=== PATIENT | female | born 1995 | race Caucasian/White ===

== ENCOUNTER 2017-02-18 19:11 | Emergency (ER) | payer BC, MEDICAID ==
[~2017-02-18] VITALS: Ht 165.1 cm; Wt 50.0 kg
[2017-02-18 19:16] VITALS: BP 101/67
[2017-02-18] MEDS ORDERED: SODIUM CHLORIDE 0.9% 1,000ML IVBOLUS ONE (19:30)
[2017-02-18] MEDS ORDERED: FAMOTIDINE 20 MG/2 ML IVP ONE (19:30)
[2017-02-18] MEDS ORDERED: ONDANSETRON 2MG/ML, 2ML IVPush ONE (19:30)
[2017-02-18] MEDS ORDERED: SODIUM CHLORIDE FLUSH 10ML SYR IVF ONE (19:30)
[2017-02-18 21:16] LABS: HEMATOCRIT 43.6 % (34.6-47.8); HEMOGLOBIN 14.7 g/dL (11.7-16.4); WHITE BLOOD COUNT 8.8 x10^3/uL (3.4-10)
[2017-02-18 21:28] LABS: BLOOD UREA NITROGEN 12 mg/dL (7-18)
[2017-02-18 21:35] LABS: DIFF TOTAL CELLS COUNTED 100 CELL DIFF
[2017-02-18 21:44] LABS: LARGE PLATELETS 1+; VERIFY COUNTS? YES
[2017-02-18] MEDS ORDERED: FAMOTIDINE 20 MG/2 ML ONE (22:02)
[2017-02-18] MEDS ORDERED: ONDANSETRON 2MG/ML, 2ML ONE (22:02)
[2017-02-18] MEDS ORDERED: ONDANSETRON ODT 4 MG ONE (22:17)
[2017-02-18] MEDS ORDERED: ONDANSETRON ODT 4 MG PO ONE (22:30)
== END 2017-02-18 23:22 | disposition home or self-care (01) ==
LOC: ED 23:11
DX: R11.2 Nausea with vomiting, unspecified (principal); R19.7 Diarrhea, unspecified; R30.0 Dysuria; F15.20 Other stimulant dependence, uncomplicated; F17.200 Nicotine dependence, unspecified, uncomplicated; Z88.1 Allergy status to other antibiotic agents; Z88.8 Allergy status to other drugs, medicaments and biological substances
CPT/HCPCS: 36415; 80048; 81001; 82040; 84703; 85025; 87086; 99284; Q0162

== ENCOUNTER 2018-05-17 22:09 | Emergency (ER) | payer BC, MEDICAID ==
[~2018-05-17] VITALS: Ht 165.1 cm; Wt 59.0 kg
[2018-05-17] MEDS ORDERED: ACETAMINOPHEN 500 MG TABLET PO ONE (22:30)
[2018-05-17] MEDS ORDERED: DIPHENHYDRAMINE 25 MG CAPSULE PO ONE (22:30)
[2018-05-17] MEDS ORDERED: IBUPROFEN 200 MG TABLET PO ONE (22:30)
[2018-05-17] MEDS ORDERED: IBUPROFEN 200 MG TABLET ONE (22:33)
[2018-05-17] MEDS ORDERED: DIPHENHYDRAMINE 25 MG CAPSULE ONE (22:34)
[2018-05-17] MEDS ORDERED: ACETAMINOPHEN 500 MG TABLET ONE (22:34)
[2018-05-17 22:45] LABS: BASOPHILS # (AUTO) 0.03 x10^3/uL (0-0.1); BASOPHILS % (AUTO) 0 % (0-1); EOSINOPHILS # (AUTO) 0.34 x10^3/uL (0-0.4); EOSINOPHILS % (AUTO) 4 % (1-7); LYMPHOCYTES # (AUTO) 3.93 x10^3/uL (1-3.4); LYMPHOCYTES % (AUTO) 46 % (22-44); MD NO; MEAN CORPUSCULAR HEMOGLOBIN 31.3 pg (27.0-34.8); MEAN CORPUSCULAR HGB CONC 34.3 g/dL (32.4-35.8); MEAN CORPUSCULAR VOLUME 91.1 fL (80-100); MONOCYTES # (AUTO) 0.77 x10^3/uL (0.2-0.8); MONOCYTES % (AUTO) 9 % (2-9); NEUTROPHILS # (AUTO) 3.41 x10^3/uL (1.8-6.8); NEUTROPHILS % (AUTO) 40 % (42-75); PLATELET COUNT 299 x10^3/uL (130-400); RED BLOOD COUNT 4.09 x10^6/uL (3.82-5.3); RED CELL DISTRIBUTION WIDTH 13.2 % (9.6-15.2)
[2018-05-17 22:57] LABS: ALBUMIN 3.7 g/dL (3.4-5.0); ANION GAP 6 mmol/L (5-15); CALCIUM 8.7 mg/dL (8.5-10.1); CHLORIDE 105 mmol/L (98-107); CREATININE 0.68 mg/dL (0.55-1.02)
[2018-05-17 23:06] VITALS: BP 104/50
== END 2018-05-18 00:04 | disposition home or self-care (01) ==
LOC: ED 23:13
DX: T78.40XA Allergy, unspecified, initial encounter (principal); G44.209 Tension-type headache, unspecified, not intractable; F17.200 Nicotine dependence, unspecified, uncomplicated; Y99.8 Other external cause status
CPT/HCPCS: 36415; 71045; 80048; 82040; 84703; 85025; 93005; 99284; Q0163

== ENCOUNTER 2018-11-16 23:19 | Emergency (ER) | payer BC, OTHER ==
[~2018-11-16] VITALS: Ht 162.6 cm; Wt 60.2 kg
[2018-11-17] MEDS ORDERED: MAALOX/HYOSCYAMINE/LIDOCAINE 45 ML BTL ONE
[2018-11-17] MEDS ORDERED: MAALOX/HYOSCYAMINE/LIDOCAINE 45 ML BTL PO ONE
--- NOTE | 2018-11-17 00:05 | NUR ---
PT IN HOSPITAL GOWN. PT ON CARDIAC AND VITALS MONITORS. PT MEDICATED WITH ORDERED MEDS. WILL CONTINUE TO MONITOR. CALL LIGHT WITHIN REACH.
[2018-11-17 00:24] LABS: BASOPHILS # (AUTO) 0.03 x10^3/uL (0-0.1); BASOPHILS % (AUTO) 0 % (0-1); EOSINOPHILS # (AUTO) 0.18 x10^3/uL (0-0.4); EOSINOPHILS % (AUTO) 2 % (1-7); LYMPHOCYTES # (AUTO) 3.54 x10^3/uL (1-3.4); LYMPHOCYTES % (AUTO) 44 % (22-44); MD NO; MEAN CORPUSCULAR HEMOGLOBIN 30.4 pg (27.0-34.8); MEAN CORPUSCULAR HGB CONC 32.2 g/dL (32.4-35.8); MEAN CORPUSCULAR VOLUME 94.5 fL (80-100); MEAN PLATELET VOLUME 9.6 fL (7.4-10.4); MONOCYTES # (AUTO) 0.57 x10^3/uL (0.2-0.8); MONOCYTES % (AUTO) 7 % (2-9); NEUTROPHILS # (AUTO) 3.65 x10^3/uL (1.8-6.8); NEUTROPHILS % (AUTO) 46 % (42-75); PLATELET COUNT 228 x10^3/uL (130-400); RED BLOOD COUNT 4.17 x10^6/uL (3.82-5.3); RED CELL DISTRIBUTION WIDTH 12.6 % (9.6-15.2)
[2018-11-17 00:37] LABS: ALBUMIN 3.8 g/dL (3.4-5.0); ANION GAP 6 mmol/L (5-15); CALCIUM 8.6 mg/dL (8.5-10.1); CHLORIDE 106 mmol/L (98-107)
[2018-11-17 00:42] LABS: ALANINE AMINOTRANSFERASE 19 U/L (12-78); ALKALINE PHOSPHATASE 36 U/L (45-117); BILIRUBIN,TOTAL 0.4 mg/dL (0.2-1.0); CREATININE 0.79 mg/dL (0.55-1.02); TOTAL PROTEIN 7.1 g/dL (6.4-8.2)
--- NOTE | 2018-11-17 00:50 | NUR ---
PT UP FOR RECHECK. ALL RESULTS BACK.
[2018-11-17 01:15] VITALS: BP 94/51
== END 2018-11-17 01:17 | disposition home or self-care (01) ==
LOC: ED 23:59
DX: K21.0 Gastro-esophageal reflux disease with esophagitis (principal); K29.00 Acute gastritis without bleeding; R07.89 Other chest pain; F17.200 Nicotine dependence, unspecified, uncomplicated
CPT/HCPCS: 36415; 80053; 83690; 84703; 85025; 93005; 99284

== ENCOUNTER 2019-05-21 21:53 | Outpatient (CLI) | payer OTHER, BC, MEDICAID ==
[~2019-05-21] VITALS: Ht 157.5 cm; Wt 72.7 kg
[2019-05-21] MEDS ORDERED: PREN-59 PO (22:12)
== END 2019-05-21 22:25 | disposition home or self-care (01) ==
LOC: LDOP 21:53
PROVIDERS: ATTEND Obstetrics & Gynecology
DX: O36.8120 Decreased fetal movements, second trimester, not applicable or unspecified (principal); Z3A.25 25 weeks gestation of pregnancy
CPT/HCPCS: 59025; 99201; 99211; G0463

== ENCOUNTER 2019-07-28 18:19 | Outpatient (CLI) | payer OTHER, BC, MEDICAID ==
[~2019-07-28] VITALS: Ht 162.6 cm; Wt 71.8 kg
[~2019-07-28 18:19] MED LIST: PREN-59 PO
[2019-07-28 18:31] VITALS: BP 107/58
[2019-07-28 18:54] LABS: MICROSCOPIC INDICATED
== END 2019-07-28 19:52 | disposition home or self-care (01) ==
LOC: LDOP 18:19
PROVIDERS: ATTEND Obstetrics & Gynecology
DX: Z34.83 Encounter for supervision of other normal pregnancy, third trimester (principal); Z3A.35 35 weeks gestation of pregnancy
CPT/HCPCS: 59025; 81001; 87086; 99211; G0463

== ENCOUNTER 2019-08-10 05:40 | Inpatient (IN) | payer OTHER, BC, MEDICAID ==
[~2019-08-10] VITALS: Ht 162.6 cm; Wt 75.0 kg
[2019-08-10] MEDS ORDERED: OXYTOCIN 30U/ 0.9% NaCL 500ML 500 ML IV PRN (05:41)
[2019-08-10] MEDS ORDERED: D5%-LACTATED RINGERS 1,000 ML IV SCH (05:41)
[2019-08-10] MEDS ORDERED: OXYTOCIN 30U/ 0.9% NaCL 500ML 500 ML IV ONE (05:41)
[2019-08-10] MEDS ORDERED: NEWBORN KIT ONE (05:44)
[2019-08-10] MEDS ORDERED: MISOPROSTOL 200 MCG TABLET ONE (05:45)
[2019-08-10] MEDS ORDERED: LIDOCAINE 1%, 20ML ONE (05:45)
[2019-08-10] MEDS ORDERED: OXYTOCIN 30U/ 0.9% NaCL 500ML 500 ML ONE ×2 (05:45→18:19)
[2019-08-10] MEDS ORDERED: TERBUTALINE 1 MG/ML, 1ML IVPush PRN (06:00)
[2019-08-10] MEDS ORDERED: FENTANYL PF 100 MCG/2ML IV PRN (06:00)
[2019-08-10] MEDS ORDERED: TERBUTALINE 1 MG/ML, 1ML SQ PRN (06:00)
[2019-08-10] MEDS ORDERED: MISOPROSTOL 25 MCG TABLET VG PRN (06:00)
[2019-08-10] MEDS ORDERED: ALUMINUM/MAG/SIMETHICONE 30 ML UDC PO PRN (06:00)
[2019-08-10] MEDS ORDERED: FENTANYL PF 100 MCG/2ML IVPush PRN (06:00)
[2019-08-10] MEDS ORDERED: ONDANSETRON 2MG/ML, 2ML IVPush PRN (06:00)
[2019-08-10 06:18] LABS: BASOPHILS # (AUTO) 0.08 x10^3/uL (0-0.1); BASOPHILS % (AUTO) 1 % (0-1); EOSINOPHILS % (AUTO) 2 % (1-7); LYMPHOCYTES # (AUTO) 2.72 x10^3/uL (1-3.4); LYMPHOCYTES % (AUTO) 30 % (22-44); MD NO; MEAN CORPUSCULAR HEMOGLOBIN 31.8 pg (27.0-34.8); MEAN CORPUSCULAR HGB CONC 33.6 g/dL (32.4-35.8); MEAN CORPUSCULAR VOLUME 94.6 fL (80-100); MEAN PLATELET VOLUME 10.1 fL (7.4-10.4); MONOCYTES # (AUTO) 0.92 x10^3/uL (0.2-0.8); MONOCYTES % (AUTO) 10 % (2-9); NEUTROPHILS # (AUTO) 5.08 x10^3/uL (1.8-6.8); NEUTROPHILS % (AUTO) 56 % (42-75); PLATELET COUNT 186 x10^3/uL (130-400); RED BLOOD COUNT 4.04 x10^6/uL (3.82-5.3); RED CELL DISTRIBUTION WIDTH 12.8 % (9.6-15.2)
[2019-08-10] MEDS: LACTATED RINGERS 1,000 ML IV SCH ×5 (06:30→21:51)
[2019-08-10] MEDS ORDERED: FENTANYL PF 500 MCG, BUPIVACAINE/PF 0.5%, 30ML 62.5 ML in SODIUM CHLORIDE 0.9% 177.5 ML EPIDCONT SCH (13:51)
[2019-08-10] MEDS ORDERED: FENTANYL PF 100 MCG/2ML ONE (13:51)
[2019-08-10] MEDS ORDERED: EPHEDRINE 50 MG/ML, 1ML IVPush PRN (14:00)
[2019-08-10] MEDS ORDERED: LACTATED RINGERS 1,000 ML IVBOLUS PRN (14:00)
[2019-08-10] MEDS ORDERED: BUPIVACAINE 0.25% ONE (14:44)
[2019-08-10] MEDS ORDERED: LIDOCAINE/PF 1.5%-EPI 1:200K, 30ML ONE (14:46)
[2019-08-10] MEDS ORDERED: BISACODYL 10 MG SUPP PR PRN (17:30)
[2019-08-10] MEDS ORDERED: METOCLOPRAMIDE 5 MG/ML, 2ML IV PRN (17:30)
[2019-08-10] MEDS ORDERED: HYDROcodone/APAP 5/325 TABLET PO PRN (17:30)
[2019-08-10] MEDS ORDERED: CARBOPROST TROMETHAMINE 250 MCG/ML, 1ML IM PRN (17:30)
[2019-08-10] MEDS ORDERED: METHYLERGONOVINE 0.2 MG/ML IM PRN (17:30)
[2019-08-10] MEDS ORDERED: OXYTOCIN 10 UNITS/ML, 1ML IM PRN (17:30)
[2019-08-10] MEDS ORDERED: ONDANSETRON 2MG/ML, 2ML IV PRN (17:30)
[2019-08-10] MEDS ORDERED: MISOPROSTOL 200 MCG TABLET PR PRN (17:30)
[2019-08-10] MEDS ORDERED: SIMETHICONE 80 MG CHEW TAB PO PRN (17:30)
[2019-08-10] MEDS: OXYTOCIN 30U/ 0.9% NaCL 500ML 500 ML IV SCH (18:21)
[2019-08-10 20:50] VITALS: BP 104/51
[2019-08-11] MEDS: IBUPROFEN 600 MG TABLET PO PRN ×3 (00:27→15:32)
[2019-08-11] MEDS: DOCUSATE 100 MG CAPSULE PO PRN ×2 (00:27→20:31)
[2019-08-11 00:30] VITALS: BP 114/75
[2019-08-11 00:58] LABS: BASOPHILS # (AUTO) 0.11 x10^3/uL (0-0.1); BASOPHILS % (AUTO) 1 % (0-1); EOSINOPHILS # (AUTO) 0.15 x10^3/uL (0-0.4); EOSINOPHILS % (AUTO) 1 % (1-7); LYMPHOCYTES # (AUTO) 2.51 x10^3/uL (1-3.4); LYMPHOCYTES % (AUTO) 18 % (22-44); MD NO; MEAN CORPUSCULAR HEMOGLOBIN 31.4 pg (27.0-34.8); MEAN CORPUSCULAR HGB CONC 33.2 g/dL (32.4-35.8); MEAN CORPUSCULAR VOLUME 94.8 fL (80-100); MEAN PLATELET VOLUME 10.1 fL (7.4-10.4); MONOCYTES # (AUTO) 0.97 x10^3/uL (0.2-0.8); MONOCYTES % (AUTO) 7 % (2-9); NEUTROPHILS # (AUTO) 9.96 x10^3/uL (1.8-6.8); NEUTROPHILS % (AUTO) 73 % (42-75); PLATELET COUNT 173 x10^3/uL (130-400); RED BLOOD COUNT 4.18 x10^6/uL (3.82-5.3); RED CELL DISTRIBUTION WIDTH 13.4 % (9.6-15.2)
[2019-08-11] MEDS: OXYTOCIN 30U/ 0.9% NaCL 500ML 500 ML IV SCH ×3 (03:06→23:06)
[2019-08-11] MEDS: ACETAMINOPHEN 325 MG TABLET PO PRN ×2 (03:26→20:31)
[2019-08-11 04:00] VITALS: BP 116/77
[2019-08-11] MEDS ORDERED: PRENATAL VIT/IRON/FA 1 EACH TABLET ONE (06:31)
[2019-08-11] MEDS: PRENATAL VIT/IRON/FA 1 EACH TABLET PO SCH (06:37)
[2019-08-11 07:15] VITALS: BP 105/58
[2019-08-11] MEDS: HYDROcodone/APAP 5/325 TABLET PO PRN (16:40)
[2019-08-11 20:00] VITALS: BP 102/64
[2019-08-12] MEDS: IBUPROFEN 600 MG TABLET PO PRN ×3 (00:39→15:41)
[2019-08-12] MEDS: HYDROcodone/APAP 5/325 TABLET PO PRN ×2 (00:39→15:41)
[2019-08-12] MEDS: PRENATAL VIT/IRON/FA 1 EACH TABLET PO SCH (08:39)
[2019-08-12] MEDS: DOCUSATE 100 MG CAPSULE PO PRN (08:39)
[2019-08-12 08:45] VITALS: BP 105/66
[2019-08-12] MEDS ORDERED: IBUP-1222 PO (16:42)
[2019-08-12] MEDS ORDERED: HYDR-3240 PO (16:43)
[2019-08-12] MEDS ORDERED: SENN-92 PO (16:44)
[2019-08-12 17:15] VITALS: BP 108/56
== END 2019-08-12 18:15 | disposition home or self-care (01) | DRG 807 ==
LOC: LDIP 05:40 → 2NW 20:34
PROVIDERS: ADMIT Obstetrics & Gynecology; ATTEND Obstetrics & Gynecology
PROC: 10E0XZZ Delivery of Products of Conception, External Approach (ICD-10-PCS; principal; 2019-08-10)
PROC: 10907ZC Drainage of Amniotic Fluid, Therapeutic from Products of Conception, Via Natural or Artificial Opening (ICD-10-PCS; 2019-08-10)
PROC: 3E033VJ Introduction of Other Hormone into Peripheral Vein, Percutaneous Approach (ICD-10-PCS; 2019-08-10)
PROC: 3E0R3BZ Introduction of Anesthetic Agent into Spinal Canal, Percutaneous Approach (ICD-10-PCS; 2019-08-10)
PROC: 00HU33Z Insertion of Infusion Device into Spinal Canal, Percutaneous Approach (ICD-10-PCS; 2019-08-10)
PROC: 0HQ9XZZ Repair Perineum Skin, External Approach (ICD-10-PCS; 2019-08-10)
PROC: 0UQMXZZ Repair Vulva, External Approach (ICD-10-PCS; 2019-08-10)
DX: O36.5930 Maternal care for other known or suspected poor fetal growth, third trimester, not applicable or unspecified (principal); Z37.0 Single live birth; O76 Abnormality in fetal heart rate and rhythm complicating labor and delivery; Z3A.37 37 weeks gestation of pregnancy; F41.9 Anxiety disorder, unspecified; O99.344 Other mental disorders complicating childbirth; O75.89 Other specified complications of labor and delivery; O70.0 First degree perineal laceration during delivery; O71.82 Other specified trauma to perineum and vulva
CPT/HCPCS: 36415; J3490; S0020; 85025; 86592; 86850; 86900; G0378; J3010; J2590; J7050; J7120

== ENCOUNTER 2020-10-08 12:06 | Outpatient (CLI) | payer OTHER, MEDICAID ==
[~2020-10-08 12:06] MED LIST changes: +HYDR-2214 PO; +IBUP-1222 PO; +SENN-92 PO
== END 2020-10-08 12:51 | disposition home or self-care (01) ==
LOC: LDOP 12:06
PROVIDERS: ATTEND Obstetrics & Gynecology
DX: O36.8190 Decreased fetal movements, unspecified trimester, not applicable or unspecified (principal)
CPT/HCPCS: 99211; G0463

== ENCOUNTER 2020-12-08 17:23 | Outpatient (CLI) | payer OTHER, MEDICAID ==
[~2020-12-08] VITALS: Ht 162.6 cm; Wt 82.3 kg
[2020-12-08 17:46] VITALS: BP 119/51
[2020-12-08 17:51] LABS: MICROSCOPIC INDICATED
== END 2020-12-08 18:21 | disposition home or self-care (01) ==
LOC: LDOP 17:23
PROVIDERS: ATTEND Obstetrics & Gynecology
DX: O26.893 Other specified pregnancy related conditions, third trimester (principal); R10.9 Unspecified abdominal pain; Z3A.34 34 weeks gestation of pregnancy
CPT/HCPCS: 59025; 81001; 87077; 87086; 87186

== ENCOUNTER 2020-12-17 11:26 | Outpatient (CLI) | payer OTHER, BC, MEDICAID ==
[~2020-12-17] VITALS: Ht 162.6 cm; Wt 82.7 kg
[2020-12-17 12:07] LABS: MICROSCOPIC NOT IND
[2020-12-17 13:59] LABS: BASOPHILS % (AUTO) 1 % (0-1); EOSINOPHILS % (AUTO) 1 % (1-7); LYMPHOCYTES % (AUTO) 23 % (22-44); MEAN CORPUSCULAR HEMOGLOBIN 30.9 pg (27.0-34.8); MEAN CORPUSCULAR HGB CONC 33.5 g/dL (32.4-35.8); MEAN PLATELET VOLUME 9.8 fL (7.4-10.4); MONOCYTES % (AUTO) 10 % (2-9); NEUTROPHILS % (AUTO) 65 % (42-75); PLATELET COUNT 208 x10^3/uL (130-400); RED BLOOD COUNT 3.83 x10^6/uL (3.82-5.3); RED CELL DISTRIBUTION WIDTH 12.7 % (9.6-15.2)
[2020-12-17] MEDS ORDERED: OXYTOCIN 30U/ 0.9% NaCL 500ML 500 ML IV ONE (14:00)
[2020-12-17] MEDS ORDERED: TERBUTALINE 1 MG/ML, 1ML SQ PRN (14:00)
[2020-12-17] MEDS ORDERED: TERBUTALINE 1 MG/ML, 1ML IVPush PRN (14:00)
[2020-12-17] MEDS ORDERED: LACTATED RINGERS 1,000 ML IV SCH (15:00)
[2020-12-17] MEDS ORDERED: PLEASE ENTER HEIGHT AND WEIGHT MC SCH (15:00)
== END 2020-12-17 15:16 | disposition home or self-care (01) ==
LOC: LDOP 11:26 → LDIP 13:53 → UNDOADMIN 13:53 → LDOP 15:16
PROVIDERS: ATTEND Obstetrics & Gynecology
DX: O26.893 Other specified pregnancy related conditions, third trimester (principal); R10.9 Unspecified abdominal pain; Z3A.36 36 weeks gestation of pregnancy
CPT/HCPCS: 36415; 59025; 81003; 85025; 86592; 86850; 86900; 87086; 87635; 96360; J7120; 96361

== ENCOUNTER 2020-12-19 04:04 | Inpatient (IN) | payer OTHER, MEDICAID ==
[~2020-12-19] VITALS: Ht 162.6 cm; Wt 82.7 kg
[2020-12-19] MEDS ORDERED: OXYTOCIN 30U/ 0.9% NaCL 500ML 500 ML IV ONE (06:00)
[2020-12-19] MEDS ORDERED: TERBUTALINE 1 MG/ML, 1ML IVPush PRN (06:00)
[2020-12-19] MEDS ORDERED: TERBUTALINE 1 MG/ML, 1ML SQ PRN (06:00)
[2020-12-19] MEDS ORDERED: FENTANYL PF 100 MCG/2ML IVPush PRN (06:00)
[2020-12-19] MEDS ORDERED: OXYTOCIN 30U/ 0.9% NaCL 500ML 500 ML IV PRN (06:00)
[2020-12-19] MEDS ORDERED: ONDANSETRON 2MG/ML, 2ML IVPush PRN (06:00)
[2020-12-19] MEDS ORDERED: LACTATED RINGERS 1,000 ML IV SCH ×2 (06:00→15:00)
[2020-12-19] MEDS ORDERED: PLEASE ENTER HEIGHT AND WEIGHT MC SCH (06:00)
[2020-12-19] MEDS ORDERED: FENTANYL PF 100 MCG/2ML IV PRN (06:00)
[2020-12-19 06:15] LABS: BASOPHILS % (AUTO) 1 % (0-1); EOSINOPHILS % (AUTO) 2 % (1-7); LYMPHOCYTES % (AUTO) 25 % (22-44); MEAN CORPUSCULAR HGB CONC 33.7 g/dL (32.4-35.8); MEAN PLATELET VOLUME 10.4 fL (7.4-10.4); MONOCYTES % (AUTO) 11 % (2-9); NEUTROPHILS % (AUTO) 62 % (42-75); PLATELET COUNT 203 x10^3/uL (130-400); RED BLOOD COUNT 3.83 x10^6/uL (3.82-5.3); RED CELL DISTRIBUTION WIDTH 12.7 % (9.6-15.2)
[2020-12-19] MEDS ORDERED: NEWBORN KIT ONE (06:15)
[2020-12-19] MEDS ORDERED: LIDOCAINE 1%, 20ML ONE (06:15)
[2020-12-19] MEDS ORDERED: MISOPROSTOL 200 MCG TABLET ONE (06:16)
[2020-12-19] MEDS ORDERED: FENTANYL/BUPIV./NS/PF 250 ML EPIDCONT ONE (14:15)
[2020-12-19] MEDS ORDERED: FENTANYL/BUPIV./NS/PF 250 ML EPIDCONT SCH (15:00)
[2020-12-19] MEDS ORDERED: NALOXONE 0.4 MG/ML, 1ML IVPush PRN (15:00)
[2020-12-19] MEDS ORDERED: EPHEDRINE 50 MG/ML, 1ML IVPush PRN (15:00)
[2020-12-19] MEDS ORDERED: LACTATED RINGERS 1,000 ML IVBOLUS PRN (15:00)
[2020-12-19] MEDS ORDERED: MISOPROSTOL 200 MCG TABLET PR PRN (17:00)
[2020-12-19] MEDS: OXYTOCIN 30U/ 0.9% NaCL 500ML 500 ML IV SCH (17:00)
[2020-12-19] MEDS ORDERED: ONDANSETRON 2MG/ML, 2ML IV PRN (17:00)
[2020-12-19] MEDS: IBUPROFEN 600 MG TABLET PO PRN (17:00)
[2020-12-19] MEDS ORDERED: SIMETHICONE 80 MG CHEW TAB PO PRN (17:00)
[2020-12-19] MEDS ORDERED: DOCUSATE 100 MG CAPSULE PO PRN (17:00)
[2020-12-19] MEDS ORDERED: OXYTOCIN 10 UNITS/ML, 1ML IM PRN (17:00)
[2020-12-19] MEDS ORDERED: ACETAMINOPHEN 325 MG TABLET PO PRN (17:00)
[2020-12-19] MEDS ORDERED: CARBOPROST TROMETHAMINE 250 MCG/ML, 1ML IM PRN (17:00)
[2020-12-19] MEDS ORDERED: METHYLERGONOVINE 0.2 MG/ML IM PRN (17:00)
[2020-12-19] MEDS ORDERED: HYDROcodone/APAP 5/325 TABLET PO PRN ×2 (17:00)
[2020-12-19 20:00] VITALS: BP 99/62
[2020-12-19] MEDS ORDERED: DIPHENHYDRAMINE 50 MG CAPSULE ONE (22:29)
[2020-12-19] MEDS ORDERED: DIPHENHYDRAMINE 25 MG CAPSULE PO PRN (22:30)
[2020-12-20] VITALS: BP 92/56
[2020-12-20] MEDS: OXYTOCIN 30U/ 0.9% NaCL 500ML 500 ML IV SCH ×3 (03:00→23:00)
[2020-12-20 04:00] VITALS: BP 98/62
[2020-12-20] MEDS: IBUPROFEN 600 MG TABLET PO PRN ×3 (05:43→18:29)
[2020-12-20 08:10] VITALS: BP 102/66
[2020-12-20] MEDS: PRENATAL VIT/IRON/FA 1 EACH TABLET PO SCH (08:24)
[2020-12-20 20:00] VITALS: BP 111/59
[2020-12-20 21:42] LABS: BASOPHILS % (AUTO) 1 % (0-1); EOSINOPHILS % (AUTO) 3 % (1-7); LYMPHOCYTES % (AUTO) 28 % (22-44); MEAN CORPUSCULAR HEMOGLOBIN 30.9 pg (27.0-34.8); MEAN CORPUSCULAR HGB CONC 33.1 g/dL (32.4-35.8); MEAN PLATELET VOLUME 9.9 fL (7.4-10.4); MONOCYTES % (AUTO) 11 % (2-9); NEUTROPHILS % (AUTO) 57 % (42-75); PLATELET COUNT 194 x10^3/uL (130-400); RED BLOOD COUNT 3.77 x10^6/uL (3.82-5.3)
[2020-12-21] MEDS: IBUPROFEN 600 MG TABLET PO PRN ×3 (06:20→21:37)
[2020-12-21] MEDS: OXYTOCIN 30U/ 0.9% NaCL 500ML 500 ML IV SCH (09:00)
[2020-12-21] MEDS: PRENATAL VIT/IRON/FA 1 EACH TABLET PO SCH (09:00)
[2020-12-21 10:00] VITALS: BP 116/73
[2020-12-21] MEDS ORDERED: ESCITALOPRAM 10MG TABLET PO ONE (19:00)
== END 2020-12-21 21:53 | disposition home or self-care (01) | DRG 807 ==
LOC: LDOP 04:04 → LDIP 05:34 → 2NW 11:11
PROVIDERS: ADMIT Obstetrics & Gynecology; ATTEND Obstetrics & Gynecology
PROC: 10E0XZZ Delivery of Products of Conception, External Approach (ICD-10-PCS; principal; 2020-12-19)
PROC: 10907ZC Drainage of Amniotic Fluid, Therapeutic from Products of Conception, Via Natural or Artificial Opening (ICD-10-PCS; 2020-12-19)
PROC: 10H07YZ Insertion of Other Device into Products of Conception, Via Natural or Artificial Opening (ICD-10-PCS; 2020-12-19)
PROC: 3E033VJ Introduction of Other Hormone into Peripheral Vein, Percutaneous Approach (ICD-10-PCS; 2020-12-19)
PROC: 3E0DXGC Introduction of Other Therapeutic Substance into Mouth and Pharynx, External Approach (ICD-10-PCS; 2020-12-19)
DX: O60.14X0 Preterm labor third trimester with preterm delivery third trimester, not applicable or unspecified (principal); Z37.0 Single live birth; Z3A.36 36 weeks gestation of pregnancy; Z20.822 Contact with and (suspected) exposure to COVID-19
CPT/HCPCS: 36415; 85025; 86592; 86850; 86900; 87635; G0378; Q0163

== ENCOUNTER 2021-01-03 06:09 | Emergency (ER) | payer OTHER, BC, MEDICAID ==
[~2021-01-03] VITALS: Ht 162.6 cm; Wt 79.7 kg
--- NOTE | 2021-01-03 06:51 | NUR ---
REPORT FROM NATALIE. PT HAS CO BILAT LEG PAIN
[2021-01-03 07:06] LABS: BASOPHILS % (AUTO) 1 % (0-1); EOSINOPHILS % (AUTO) 3 % (1-7); LYMPHOCYTES % (AUTO) 32 % (22-44); MEAN CORPUSCULAR HEMOGLOBIN 31.1 pg (27.0-34.8); MEAN CORPUSCULAR HGB CONC 33.6 g/dL (32.4-35.8); MONOCYTES % (AUTO) 10 % (2-9); NEUTROPHILS % (AUTO) 54 % (42-75); PLATELET COUNT 232 x10^3/uL (130-400); RED BLOOD COUNT 4.14 x10^6/uL (3.82-5.3); RED CELL DISTRIBUTION WIDTH 12.6 % (9.6-15.2)
[2021-01-03 07:16] LABS: ALBUMIN 2.8 g/dL (3.4-5.0); ANION GAP 6 mmol/L (5-15); CALCIUM 8.1 mg/dL (8.5-10.1); CHLORIDE 107 mmol/L (98-107); CREATININE 0.63 mg/dL (0.55-1.02)
[2021-01-03 08:11] VITALS: BP 117/82
--- NOTE | 2021-01-03 08:11 | NUR ---
Patient given discharge instructions and they have confirmed that they understand the instructions. Patient ambulatory with steady gait.
== END 2021-01-03 08:13 ==
LOC: ED 07:57
DX: N61.0 Mastitis without abscess (principal); E83.51 Hypocalcemia; M79.651 Pain in right thigh; K21.9 Gastro-esophageal reflux disease without esophagitis; Z87.891 Personal history of nicotine dependence; Z88.1 Allergy status to other antibiotic agents
CPT/HCPCS: 36415; 80048; 82040; 85025; 93970; 99284